=== PATIENT | male | born 1995 | race Caucasian/White ===

== ENCOUNTER → 2020-03-04 14:12 | Outpatient (CLI) | payer SELFPAY ==
--- NOTE | 2020-03-04 14:34 | ECG_ITS ---
APPROVED REPORT Exam: Resting ECG HR:79 bpm ECG Measurements Heart Rate 79 AXES TX 154 P 63 QRSd 102 QRS 109 QT 340 T 9 QTc 389 <Conclusion> Normal sinus rhythm Rightward axis-possible limb lead reversal Borderline ECG Electronically signed by : Thor Corley, 03/04/2020 16:31:00
== END ==
PROVIDERS: PCP Family Medicine; Visit Provider Family Medicine
DX: R00.2 Palpitations (principal)
CPT/HCPCS: 93005

== ENCOUNTER → 2021-03-30 16:25 | Outpatient (CLI) | payer SELFPAY | PROVIDERS: PCP Family Medicine; Visit Provider Family Medicine | DX: R00.2 Palpitations (principal) | CPT/HCPCS: 93225; 93226 ==

== ENCOUNTER → 2021-10-18 08:02 | Outpatient (CLI) | payer SELFPAY | PROVIDERS: PCP Family Medicine; Visit Provider Physician Assistant | DX: R06.00 Dyspnea, unspecified (principal); R00.2 Palpitations; R94.31 Abnormal electrocardiogram [ECG] [EKG] | CPT/HCPCS: 93306 ==

== ENCOUNTER 2024-04-08 10:02 | Outpatient (CLI) | payer SELFPAY ==
--- NOTE | 2024-04-08 | CA_ITS ---
APPROVED REPORT Exam: Exercise Treadmill Technologist: Anjelica Perry Ht: 5 ft 7 in Wt: 140 lbs BSA: 1.74 m2 HR: 87 bpm BP: 113/61 mmHg Stress Test Details Test: Lobo HR Resting HR: 87 bpm Max Heart Rate (APMHR): 192.182021 bpm Target HR (85% APMHR): 163.477019 bpm Recovery HR: 110 bpm BP Resting BP: 113.0/61.0 mmHg Recovery BP: 134.0/77.0 mmHg ECG Resting ECG: Normal sinus rhythm, right axis deviation Stress ECG Conclusion Patient exercised on Lobo Protocol. Test stopped due to shortness of air. Symptoms: No chest pain. Palpitations in recovery Arrhythmias/Ectopy: Occasional PAC during exercise. In the first few minutes of revovery, there are frequent PACs and PVCs. ST-T Changes: Within normal ST response to exercise. Conclusion: No chest pain or ischemic EKG changes. Frequent atrial and ventricular ectopy in recovery. GXT only (no imagaing). Electronically signed by : Emmie Hicks MD 04/12/2024 20:40:29
== END 2024-04-08 23:59 | disposition home or self-care (01) ==
LOC: RT 10:02
PROVIDERS: PCP Family Medicine; Visit Provider Family Medicine
DX: R07.89 Other chest pain (principal); R00.2 Palpitations
CPT/HCPCS: 93017; 93018